=== PATIENT | male | born 1970 | race American Indian/Alaskan Native ===

== ENCOUNTER 2017-01-12 11:00 | Emergency (ER) | payer OTHER ==
[~2017-01-12] VITALS: Wt 90.7 kg
[2017-01-12] MEDS ORDERED: LISINOPRIL20 MG PO (11:07)
[2017-01-12] MEDS ORDERED: CYCLOBENZAPRINE10 MG PO (12:16)
[2017-01-12] MEDS ORDERED: NAPROSYN500 MG PO (12:16)
== END 2017-01-12 12:19 | disposition home or self-care (01) ==
LOC: ED 11:00
DX: S20.212A Contusion of left front wall of thorax, initial encounter (principal); W55.82XA Struck by other mammals, initial encounter; Y93.89 Activity, other specified; Y92.9 Unspecified place or not applicable; Y99.9 Unspecified external cause status

== ENCOUNTER → 2021-07-23 | Outpatient (CLI) | payer OTHER ==
[~2021-07-23] MED LIST: CYCLOBENZAPRINE10 MG PO; LISINOPRIL20 MG PO; NAPROSYN500 MG PO
== END | disposition home or self-care (01) ==
LOC: RAD 13:09
PROVIDERS: ATTEND Nurse Practitioner Family
DX: M25.421 Effusion, right elbow (principal); M77.8 Other enthesopathies, not elsewhere classified